=== PATIENT | male | born 1990 | race Caucasian/White ===

== ENCOUNTER 2023-12-24 06:17 | Day surgery (SDC) | payer OTHER, SELFPAY ==
[2023-12-24] VITALS (12 sets, daily range): BP systolic 107–135; BP diastolic 64–92; BMI 24.7
[2023-12-24] MEDS: NORMOSOL-R 1000 IV (08:39)
[2023-12-24] MEDS: AFRIN NASAL SPRAY 2 SPRAYS NASAL (10:00)
[2023-12-24] MEDS: SUBLIMAZE 50 MCG IV ×2 (12:08→12:27)
[2023-12-24] MEDS: DILAUDID 0.5 MG IV (13:14)
[2023-12-24] MEDS: TYLENOL 650 MG PO (14:03)
== END 2023-12-24 14:26 | disposition home or self-care (01) ==
LOC: SDS 06:17
PROVIDERS: ATTENDING PHYSICIAN Ophthalmology Ophthalmic Plastic and Reconstructive Surgery
DX: H04.322 Acute dacryocystitis of left lacrimal passage (principal); H04.412 Chronic dacryocystitis of left lacrimal passage; H04.552 Acquired stenosis of left nasolacrimal duct
CPT/HCPCS: 68720; 68815; 87070; 87075; 87076; 87077; 87185; 87205

== ENCOUNTER 2024-06-07 16:52 | Emergency (ER) | payer OTHER, SELFPAY ==
[2024-06-07 16:56] VITALS: BP 172/104
--- NOTE | 2024-06-07 18:55 | ED.GENMED ---
History of Present Illness
General
Chief Complaint: Abdominal Pain
Source: patient
Exam Limitations: none
Time Seen by Provider: 06/07/24 18:07
Nursing documentation reviewed up to this point in time: agreed with
History of Present Illness
History of Present Illness:
Patient is a 33-year-old male who presents to the emergency department complaining of a pulsation in his right upper quadrant for the past 3 days since eating at [employer]. Patient states it is uncomfortable but not necessarily painful. Patient
did have mild diarrhea but no melena or hematochezia. Patient denies any nausea or vomiting. Patient states he is short of breath when the pulsing becomes worse and he feels anxious. Patient denies fever chills or coughing. Patient denies any
chest pain or palpitations. Patient denies any symptoms. Patient denies any leg pain or swelling. Patient denies any previous history of similar episodes.
Past History
Past History
ED Past Medical History: Asthma and Other (Kidney stones, diverticulitis and diverticulosis, impaired vision, ADHD, pneumonia)
Social History
Tobacco: Smoker
Review of Systems
Review of Systems
All Other Systems: ROS reviewed and negative except as documented in HPI and ROS
Constitutional: Denies fever or chills
EENT: Reports no symptoms
Respiratory: Reports no symptoms
Cardiac: Reports no symptoms
ABD/GI: Reports abdominal pain and diarrhea; Denies nausea, vomiting, constipated, bloody stools, black stools or anorexia
: Reports no symptoms
Musculoskeletal: Reports no symptoms
Skin: Reports no symptoms
Neurological: Reports no symptoms
Hematologic/Lymphatic: Reports no symptoms
Psychiatric: Reports no symptoms
Phy Exam
Physical Exam
Physical Exam:
Physical Exam
General: mild distress, alert and appropriate, well nourished, well hydrated
HENT: Normocephalic, supple with no lymphadenopathy, no thyromegaly
Eyes: Clear sclera, conjuctiva without injection
Heart: Regular rhythm and rate. No S3, S4. No murmur.
Lungs: No respiratory distress, no stridor, lung sounds clear and equal bilaterally, chest wall symmetrical and nontender
Abdomen: Soft, mild to moderate upper abdominal tenderness without guarding or rebound, no organomegaly, no CVA tenderness, BS good
Neuro: Alert and oriented x 3, CN II - XII intact, no motor focality, no cerebellar dysfunction
Skin: no rash
Psychiatric: well kept. interactive and cooperative
Extremities: No edema, cyanosis, tenderness, Good and equal peripheral pulses.
Course
Orders/Labs/Results
Orders:
Orders
06/07/24 16:59
CR Chest - 2 Views Urgent
Comment:
Reason For Exam: RUQ pain
06/07/24 18:39
US Abdomen Complete/Upper Urgent
Comment:
Reason For Exam: discomfort ruq
06/07/24 18:52
Complete Blood Count/With Diff Urgent
Comprehensive Metabolic Panel Urgent
Lipase Urgent
Abnormal Lab Results
06/07/24
18:52
Absolute Lymphs (auto) 1.0 L 10^3/uL
(1.2-3.4)
Neutrophils % 77.6 H %
(42.2-75.2)
Lymphocytes % 12.9 L %
(20.5-51.1)
Glucose 107 H mg/dl
(70-99)
06/07/24 18:52
06/07/24 18:52
Vital Signs
Initial and Last Documented VS:
Initial Vital Signs
Temp Pulse Resp BP Pulse Ox
98.2 F 117 18 172/104 99
06/07/24 16:56 06/07/24 16:56 06/07/24 16:56 06/07/24 16:56 06/07/24 16:56
Last Documented Vital Signs
Temp Pulse Resp BP Pulse Ox
98.2 F 117 18 172/104 99
06/07/24 16:56 06/07/24 16:56 06/07/24 16:56 06/07/24 16:56 06/07/24 16:56
*Radiology
Radiology exam reviewed: radiology read reviewed (Questionable right infrahilar pneumonia and gallstones but no cholecystitis)
*Pulse Oximetry
Patient hypoxic: no
*EKG
Interpreted by ED Provider?: NA
*Grant Administrator Interpretation
Rate: Grant Administrator- N/A
*Critical Care Note
Total Time (30-74mins, 75-104mins- exclusive of procedures): Not Applicable
Update Note
Update Note:
Patient retreated for pneumonia. Patient referred to the primary care physician for the gallstones which are not a problem at this time.
ED Attending Note
-
Portions of this chart may have been created with voice recognition software.� Occasional wrong word or��sound alike� substitutions may have occurred due to the inherent limitations of voice recognition software.
Discharge Plan
Departure
Patient Disposition: Home (Routine Discharge)
Date of Disposition: 06/07/24
Time of Disposition: 20:02
Patient with high blood pressure during this ER visit?: Yes
Condition: Good
Covid-19: Not Applicable
Discharge Problem:
Pneumonia, Cholelithiasis
Instructions: Community-acquired pneumonia in adults, Gallstones (DC), BLOOD PRESSURE
Prescriptions:
New
azithromycin [Zithromax] 250 mg Tablet
250 mg PO DAILY Qty: 6 0RF
No Action
fluticasone propion-salmeterol 250-50 mcg/dose Blister With Device
1 inh INHALATION BID
acetaminophen [Tylenol] 325 mg Tablet
650 mg PO Q4H PRN (Reason: pain)
cetirizine [Zyrtec] 10 mg Tablet
10 mg PO DAILY
ibuprofen 400 mg Tablet
600 mg PO Q6H PRN (Reason: pain)
doxycycline hyclate 100 mg Tablet
100 mg PO BID
Medical Cannibus
1 dose PO PRN PRN (Reason: sleep, anxiety, pain)
Referrals:
Lane Delvalle DO [Family Provider] - Follow up in 5-7 days
Interventions
Interventions:
*General Assessment Last Done: 06/07/24 16:56
Discharge Date and Time
Print Language: TURKISH
[2024-06-07 19:07] LABS: % Basophils 0.4 % (0-2); % Eosinophils 0.4 % (0-6); % Immature Granulocytes 0.3 % (0-0.5); % Lymphocytes 12.9 % (20.5-51.1); % Monocytes 8.4 % (1.7-9.3); % Neutrophils 77.6 % (42.2-75.2); Absolute Monocytes 0.6 10^3/uL (0.1-0.6); Absolute Neutrophils 5.9 10^3/uL (1.4-6.5); Hematocrit 43.2 % (39.0-52.0); Hemoglobin 15.1 g/dL (13.0-18.0); Mean Corpuscular Hgb 29.7 pg (27.0-31.0); Mean Platelet Volume 9.2 fL (7.4-10.4); Nucleated Red Blood Cells % 0 % (-); Platelet Count 201 10^3/uL (130-400); Red Blood Cell Count 5.08 10^6/uL (4.70-6.10); Red Cell Dist. Width 12.6 % (11.5-14.5); White Blood Cell Count 7.6 10^3/uL (4.8-10.8)
[2024-06-07 19:23] LABS: ALT (SGPT) 47 U/L (0-50); AST (SGOT) 35 U/L (17-59); Albumin 4.6 g/dl (3.5-5.0); Alkaline Phosphatase 76 U/L (38-126); Blood Urea Nitrogen 16 mg/dl (9-20); Calcium 9.6 mg/dl (8.4-10.2); Carbon Dioxide 29 mmol/L (22-30); Chloride 101 mmol/L (98-107); Glucose 107 mg/dl (70-99); Lipase 45 U/L (23-300); Potassium 4.3 mmol/L (3.5-5.1); Sodium 138 mmol/L (135-145); Total Bilirubin 0.4 mg/dl (0.2-1.3); Total Protein 7.6 g/dl (6.3-8.2); eGFR > 60.00
== END 2024-06-07 20:31 | disposition home or self-care (01) ==
LOC: EMR 16:52
PROVIDERS: EMERGENCY PHYSICIAN Emergency Medicine; FAMILY PHYSICIAN Anesthesiology
DX: J18.9 Pneumonia, unspecified organism (principal); K80.20 Calculus of gallbladder without cholecystitis without obstruction; J45.909 Unspecified asthma, uncomplicated; F90.9 Attention-deficit hyperactivity disorder, unspecified type; F17.200 Nicotine dependence, unspecified, uncomplicated; Z87.442 Personal history of urinary calculi
CPT/HCPCS: 99284; 71046; 76700; 80053; 83690; 85025